=== PATIENT | male | born 1965 | race Two or more races ===

== ENCOUNTER 2017-10-28 14:18 | Emergency (ER) | payer OTHER ==
[~2017-10-28] VITALS: Ht 185.4 cm; Wt 111.1 kg
[2017-10-28 14:28] VITALS: BP 157/93
[2017-10-28] MEDS ORDERED: KETOROLAC TROMETH 60MG/2ML VIAL IM ONE (15:15)
== END 2017-10-28 15:28 | disposition home or self-care (01) ==
LOC: ER 14:22
DX: S93.401A Sprain of unspecified ligament of right ankle, initial encounter (principal); X50.1XXA Overexertion from prolonged static or awkward postures, initial encounter; Y93.89 Activity, other specified; Y92.89 Other specified places as the place of occurrence of the external cause; Y99.8 Other external cause status
CPT/HCPCS: 73610; 73630; 96372; 99284; J1885

== ENCOUNTER 2021-03-06 16:43 | Emergency (ER) | payer MEDICAID, OTHER ==
[~2021-03-06] VITALS: Ht 185.4 cm; Wt 97.5 kg
[2021-03-06 18:01] VITALS: BP 122/79
[2021-03-06] MEDS ORDERED: IBUPROFEN 800 MG TAB PO ONE (18:15)
[2021-03-06] MEDS ORDERED: cefTRIAXone SOD 1,000 MG VL IM ONE (18:15)
== END 2021-03-06 18:55 | disposition home or self-care (01) ==
LOC: ER 16:43
DX: K02.9 Dental caries, unspecified (principal); L08.9 Local infection of the skin and subcutaneous tissue, unspecified
CPT/HCPCS: 96372; 99283; J0696